=== PATIENT | female | born 1970 | race Caucasian/White ===

== ENCOUNTER 2017-01-31 18:43 | Emergency (ER) | payer OTHER ==
[~2017-01-31] VITALS: Ht 175.3 cm; Wt 64.3 kg
[2017-01-31 20:55] VITALS: BP 154/82
== END 2017-01-31 20:55 | disposition home or self-care (01) ==
LOC: EME 18:43
PROC: 0HQFXZZ Repair Right Hand Skin, External Approach (ICD-10-PCS; principal; 2017-01-31)
DX: S61.411A Laceration without foreign body of right hand, initial encounter (principal); S61.210A Laceration without foreign body of right index finger without damage to nail, initial encounter; Y99.0 Civilian activity done for income or pay; W31.9XXA Contact with unspecified machinery, initial encounter; Z88.2 Allergy status to sulfonamides; Z91.041 Radiographic dye allergy status; F17.200 Nicotine dependence, unspecified, uncomplicated
CPT/HCPCS: 73140; 99281; 99284